=== PATIENT | male | born 1990 | race Caucasian/White ===

== ENCOUNTER 2016-04-18 10:30 | Emergency (ER) | payer MEDICAID, OTHER ==
--- NOTE | 2016-04-18 10:45 | ER Document Report ---
ED Medical Screen (RME) - General Stated Complaint: WEAKNESS Notes: schizoaffective has been started on new medications Dr Lee [facility] c/o auditory hallucinations, agitation that has gotten worse over the past 2 weeks denies any thoughts of harming himself or others. TRAVEL OUTSIDE OF THE [place] IN LAST 30 DAYS: No - Related Data Allergies/Adverse Reactions: No Known Allergies Allergy (Unverified 02/18/16 15:58) Past Medical History Psychiatric Medical History: Reports: Hx Anxiety, Hx Depression, Hx Schizophrenia - Immunizations Hx Diphtheria, Pertussis, Tetanus Vaccination: No Physical Exam - Vital signs Vitals: Temp Pulse Resp BP Pulse Ox 98.0 F 104 H 20 124/80 99 04/18/16 10:35 04/18/16 10:35 04/18/16 10:35 04/18/16 10:35 04/18/16 10:35 Course - Vital Signs Vital signs: Temp Pulse Resp BP Pulse Ox 98.0 F 104 H 20 124/80 99 04/18/16 10:35 04/18/16 10:35 04/18/16 10:35 04/18/16 10:35 04/18/16 10:35
--- NOTE | 2016-04-18 11:33 | ER Document Report ---
[id number] Mode of Arrival: Ambulatory Information source: Patient Notes: 25 yr old male with schizoeffective disorder presents with ocmplaints of hearing voices, pt attributes this secondary to marijuana use at age 18. Pt is currently on benztropine, seroquel and note meds are not working. TRAVEL OUTSIDE OF THE [place] IN LAST 30 DAYS: No - HPI Onset: Last week Onset/Duration: Persistent Quality of pain: No pain Severity: Mild Pain Level: Denies Associated symptoms: None Exacerbated by: Denies Relieved by: Denies Similar symptoms previously: No Recently seen / treated by doctor: No - Related Data Allergies/Adverse Reactions: No Known Allergies Allergy (Verified 04/18/16 10:41) Past Medical History - Social History Smoking Status: Current Every Day Smoker Cigarette use (# per day): Yes Chew tobacco use (# tins/day): No Smoking Education Provided: Yes - Patient counselled regarding cessation for 4 minutes Frequency of alcohol use: None Drug Abuse: None Family History: Reviewed & Not Pertinent Patient has suicidal ideation: No Patient has homicidal ideation: No Renal/ Medical History: Denies: Hx Peritoneal Dialysis Psychiatric Medical History: Reports: Hx Anxiety, Hx Depression, Hx Schizophrenia - Immunizations Hx Diphtheria, Pertussis, Tetanus Vaccination: No Review of Systems - Review of Systems Notes: REVIEW OF SYSTEMS: CONSTITUTIONAL : Denies fever, chills, or sweats. Denies recent illness. EENT: Denies eye, ear, throat, or mouth pain or symptoms. Denies nasal or sinus congestion or discharge. Denies throat, tongue, or mouth swelling or difficulty swallowing. CARDIOVASCULAR: Denies chest pain. Denies palpitations or racing or irregular heart beat. Denies ankle edema. RESPIRATORY: Denies cough, cold, or chest congestion. Denies shortness of breath, difficulty breathing, or wheezing. GASTROINTESTINAL: Denies abdominal pain or distention. Denies nausea, vomiting , or diarrhea. Denies blood in vomitus, stools, or per rectum. Denies black, tarry stools. Denies constipation. GENITOURINARY: Denies difficulty urinating, painful urination, burning, frequency, blood in urine, or discharge. MUSCULOSKELETAL: Denies back or neck pain or stiffness. Denies joint pain or swelling. SKIN: Denies rash, lesions or sores. HEMATOLOGIC : Denies easy bruising or bleeding. LYMPHATIC: Denies swollen, enlarged glands. NEUROLOGICAL: Denies confusion or altered mental status. Denies passing out or loss of consciousness. Denies dizziness or lightheadedness. Denies headache. Denies weakness or paralysis or loss of use of either side. Denies problems with gait or speech. Denies sensory loss, numbness, or tingling. Denies seizures. PSYCHIATRIC: Admits to auditory hallucinations ALL OTHER SYSTEMS REVIEWED AND NEGATIVE. Dictation was performed using [employer] voice recognition software PHYSICAL EXAMINATION: GENERAL: Well-appearing, well-nourished and in no acute distress. HEAD: Atraumatic, normocephalic. EYES: Pupils equal round and reactive to light, extraocular movements intact, sclera anicteric, conjunctiva are normal. ENT: Nares patent, oropharynx clear without exudates. Moist mucous membranes. NECK: Normal range of motion, supple without lymphadenopathy LUNGS: Breath sounds clear to auscultation bilaterally and equal. No wheezes rales or rhonchi. HEART: Regular rate and rhythm without murmurs ABDOMEN: Soft, nontender, nondistended abdomen. No guarding, no rebound. No masses appreciated. Musculoskeletal: Normal range of motion, no pitting or edema. No cyanosis. NEUROLOGICAL: Cranial nerves grossly intact. Normal speech, normal gait. Normal sensory, motor exams PSYCH: Noted to be aggressive on arrival a calm in the room SKIN: Warm, Dry, normal turgor, no rashes or lesions noted. Physical Exam - Vital signs Vitals: Temp Pulse Resp BP Pulse Ox 98.0 F 104 H 20 124/80 99 04/18/16 10:35 04/18/16 10:35 04/18/16 10:35 04/18/16 10:35 04/18/16 10:35 Course - Re-evaluation Re-evalutation: 04/18/16 11:39 Medically, do not expect any abnormalities, patient will be evaluated by mental health - Vital Signs Vital signs: Temp Pulse Resp BP Pulse Ox 98.0 F 89 16 101/54 L 97 04/18/16 12:30 04/18/16 12:30 04/18/16 12:30 04/18/16 12:30 04/18/16 12:30 - Laboratory Result Diagrams: 04/18/16 11:27 01/16/17 11:27 Laboratory results interpreted by me: 04/18/16 04/18/16 04/18/16 11:27 11:27 14:30 Hgb 13.3 L RDW 14.5 H Eosinophils % 9.6 H Total Protein 8.3 H Ur Leukocyte Esterase SMALL H Salicylates < 1.0 L Acetaminophen < 10 L Discharge - Discharge Clinical Impression: Auditory hallucinations Schizoaffective disorder Qualifiers: Schizoaffective disorder type: bipolar Qualified Code(s): F25.0 - Schizoaffective disorder, bipolar type Condition: Stable Disposition: PSYCH HOSP/UNIT Additional Instructions: Please follow-up with the care plan provided to you by our mental health team will return immediately if there any other concerns
[2016-04-18 11:52] LABS: ABSOLUTE EOSINOPHILS # (AUTO) 0.6 10^3/uL (0.0-0.6); ABSOLUTE LYMPHOCYTES (AUTO) 1.2 10^3/uL (0.5-4.7); ABSOLUTE MONOCYTES (AUTO) 0.5 10^3/uL (0.1-1.4); ABSOLUTE NEUT (AUTO) 3.7 10^3/uL (1.7-8.2); BASOPHILS % (AUTO) 0.7 % (0-2); EOSINOPHILS % (AUTO) 9.6 % (0-6); HEMATOCRIT 40.9 % (37.9-51.0); HEMOGLOBIN 13.3 g/dL (13.5-17.0); MEAN CORPUSCULAR HEMOGLOBIN 29.5 pg (27.0-33.4); MEAN CORPUSCULAR HGB CONC 32.6 g/dL (32.0-36.0); MEAN CORPUSCULAR VOLUME 90 fl (80-97); MONOCYTES % (AUTO) 8.8 % (3-13); RED BLOOD COUNT 4.52 10^6/uL (4.35-5.55); RED CELL DISTRIBUTION WIDTH 14.5 % (11.5-14.0); SEGMENTED NEUTROPHILS % (AUTO) 60.9 % (42-78)
[2016-04-18 12:10] LABS: ALANINE AMINOTRANSFERASE 32 U/L (21-72); ALKALINE PHOSPHATASE 68 U/L (38-126); ANION GAP 11 (5-19); ASPARTATE AMINO TRANSFERASE 22 U/L (17-59); BILIRUBIN,TOTAL 0.3 mg/dL (0.2-1.3); BLOOD UREA NITROGEN 14 mg/dL (7-20); CALCIUM 9.5 mg/dL (8.4-10.2); CARBON DIOXIDE 28 mmol/L (22-30); CHLORIDE 105 mmol/L (98-107); GLUCOSE 108 mg/dL (75-110); POTASSIUM 4.3 mmol/L (3.6-5.0); SODIUM 143.9 mmol/L (137-145); TOTAL PROTEIN 8.3 g/dL (6.3-8.2)
[2016-04-18 12:12] LABS: ALCOHOL < 10 mg/dL (NONE DETECTED)
--- NOTE | 2016-04-18 12:18 | EKG REPORT ---
SEVERITY:- ABNORMAL ECG - SINUS RHYTHM BORDERLINE T ABNORMALITIES, INFERIOR LEADS ST ELEVATION SUGGESTS NORMAL VARIANT. : Confirmed by: Juliocesar Morgan MD 18-Apr-2016 12:17:51
[2016-04-18 15:27] LABS: APPEARANCE,URINE CLEAR; BILIRUBIN,URINE NEGATIVE (NEGATIVE); GLUCOSE, URINE NEGATIVE (NEGATIVE); KETONES,URINE NEGATIVE (NEGATIVE); LEUKOCYTE ESTERASE,URINE SMALL (NEGATIVE); NITRITE,URINE NEGATIVE (NEGATIVE); PROTEIN,URINE NEGATIVE (NEGATIVE); URINE SPECIFIC GRAVITY 1.013; UROBILINOGEN,URINE NEGATIVE mg/dL (<2.0)
[2016-04-18 15:38] LABS: URINE BARBITURATES SCREEN NEGATIVE; URINE METHADONE SCREEN NEGATIVE; URINE PHENCYCLIDINE SCREEN NEGATIVE
--- NOTE | 2016-04-18 16:13 | PSYCHOLOGICAL NOTE ---
Psych Note - Psych Note Psych Note: Patient is a 25 year old male who presents via his Aunt, with c/o AH. Patient is reportedly diagnosed with Schizoaffective Disorder, Bipolar Type and has been seen in this department previously for similar complaints. Note, patient was seen and administered Haldol Deconate 02/17. Patient reportedly followed up with Dr. Lee at [facility] and was started on new medications 2 weeks ago. Patient today does not engage in conversation and instructs me to talk to his Aunt. Attempted multiple times to engage patient in conversation, which appeared to increase his irritability aeb voice dipak. Patient advised that his instructions to speak with his aunt were considered as verbal consent. Patient's Aunt, Dasha Tyson states since his last episode his aggressive outbursts have increased in frequency and severity. Aunt reports over the weekend she became afraid of the patient after multiple episodes of his posturing as though he would assault her, she brought him to a motel. She states she scheduled an appointment for this morning with [facility] after she no longer felt his provider via [facility] could help due to multiple medication trials with no improvement of his symptoms. She states at the appointment this morning, another individual in the building turned around when they walked in. She reports the patient became argumentative and challenged the patient as though he was going to assault him. Aunt states they were directed by staff to leave and come to the ED for evaluation (by the office staff). Aunt states since his discharge last February, he followed up with [facility] [[email or web address]], and due to continued aggression and no relief from the hallucinations, the Haldol was discontinued and has since been started on Seroquel XR whicch caused him to remain awake chain smoking cigarettes all night (400 mg 2 tabs qhs); Propanolol 20 mg bid; Trazadone 10 mg qhs; and Cogentin 1 mg bid. Aunt adamant that she provides patient the doses when do and she does her best to observe the patient swallow the pills. She states she does not feel safe with the patient at home due to his verbal aggression, posturing, and continued auditory hallucinations. Patient appears to be A&O. Mood is irritable and defiant with normal affect. Patient did not answer questions about suicidality or homicidal ideations. Patient is observed in his room talking as though he is responding to internal stimuli. Thought processes were guarded. Conversational speech was labile for rate, tone, and prosody. Intellectual abilities were estimated within average range. Attention and focus were fair. Insight, judgment, and impulse control were poor 1. 295.70 (F25.0) Schizoaffective Disorder, Bipolar Type Patient is recommended to be placed under IVC and seek 24 hour inpatient psychiatric hospitalizations. Patient presents as a danger to himself and possibly others. Patient's poor judgment and poor insight are exasperated by his paranoia placing him at risk for additional and possibly more severe episodes.
[2016-04-19 06:42] VITALS: BP 102/58
--- NOTE | 2016-04-19 09:44 | ER Document Report ---
Doctor's Note Notes: 04/19/16 09:40 Rounds: Chart reviewed and patient interviewed. Patient being evaluated for hallucinations, agitation, psychotic behavior. Working diagnosis of schizoaffective disorder, bipolar type. Vital signs are all normal except for a very slight increase in heart rate in the 109 this morning. All lab studies have been essentially normal. Patient appears to be medically stable for transfer or discharge. Patient has a room assignment at [facility] and will be transferred there is morning. Vinod Neumann M.D.
== END 2016-04-19 10:06 ==
LOC: ER 10:30
DX: F25.0 Schizoaffective disorder, bipolar type (principal); F17.210 Nicotine dependence, cigarettes, uncomplicated; Z71.6 Tobacco abuse counseling; Z79.899 Other long term (current) drug therapy
CPT/HCPCS: 36415; 80053; 80307; 81001; 85025; 93005; 93010; 99285

== ENCOUNTER → 2019-10-17 | Outpatient (CLI) | payer MEDICAID ==
[2019-10-17 15:39] LABS: ABSOLUTE LYMPHOCYTES (AUTO) 0.9 10^3/uL (0.5-4.7); ABSOLUTE MONOCYTES (AUTO) 0.3 10^3/uL (0.1-1.4); ABSOLUTE NEUT (AUTO) 5.5 10^3/uL (1.7-8.2); BASOPHILS % (AUTO) 0.6 % (0-2); EOSINOPHILS % (AUTO) 0.6 % (0-6); HEMOGLOBIN 13.6 g/dL (13.5-17.0); LYMPHOCYTES % (AUTO) 12.9 % (13-45); MEAN CORPUSCULAR HEMOGLOBIN 34.6 pg (27.0-33.4); MEAN CORPUSCULAR HGB CONC 35.7 g/dL (32.0-36.0); MEAN CORPUSCULAR VOLUME 97 fl (80-97); MONOCYTES % (AUTO) 3.9 % (3-13); PLATELET COUNT 368 10^3/uL (150-450); RED BLOOD COUNT 3.92 10^6/uL (4.35-5.55); RED CELL DISTRIBUTION WIDTH 14.6 % (11.5-14.0); TOTAL CELLS COUNTED % (AUTO) 100 %; WHITE BLOOD COUNT 6.6 10^3/uL (4.0-10.5)
[2019-10-17 15:47] LABS: ALKALINE PHOSPHATASE 121 U/L (38-126); ANION GAP 9 (5-19); ASPARTATE AMINO TRANSFERASE 45 U/L (17-59); BILIRUBIN,TOTAL 0.4 mg/dL (0.2-1.3); BLOOD UREA NITROGEN 7 mg/dL (7-20); CALCIUM 9.6 mg/dL (8.4-10.2); CARBON DIOXIDE 26 mmol/L (22-30); CHLORIDE 99 mmol/L (98-107); GLUCOSE 93 mg/dL (75-110); POTASSIUM 4.5 mmol/L (3.6-5.0); TOTAL PROTEIN 7.5 g/dL (6.3-8.2)
== END ==
LOC: OD 14:47
PROVIDERS: ATTEND Family Medicine
DX: E83.42 Hypomagnesemia (principal); E55.9 Vitamin D deficiency, unspecified; E87.1 Hypo-osmolality and hyponatremia; E87.6 Hypokalemia; Z79.899 Other long term (current) drug therapy
CPT/HCPCS: 36415; 80053; 82306; 83735; 85025

== ENCOUNTER → 2019-11-25 | Outpatient (CLI) | payer MEDICAID ==
[2019-11-25 10:20] LABS: ALBUMIN 4.3 g/dL (3.5-5.0); ALKALINE PHOSPHATASE 102 U/L (38-126); ASPARTATE AMINO TRANSFERASE 27 U/L (17-59); BILIRUBIN,DIRECT 0.3 mg/dL (0.0-0.4); BILIRUBIN,TOTAL 0.6 mg/dL (0.2-1.3); TOTAL PROTEIN 7.7 g/dL (6.3-8.2)
== END ==
LOC: OD 08:49
PROVIDERS: ATTEND Family Medicine
DX: R79.89 Other specified abnormal findings of blood chemistry (principal)
CPT/HCPCS: 36415; 80076

== ENCOUNTER 2019-12-26 09:55 | Day surgery (SDC) | payer MEDICAID ==
[~2019-12-26 09:55] MED LIST: CHONDR SU A NA/HYALUR INTRAOC KIT (SURGICARE) ONE; DORZOLAMIDE HCL 2%/TIMOLOL MALEAT 0.5% OPH SOLN 10 ML OS PRN; EPINEPHRINE INJ/PF 1 MG/1 ML AMPULE ONE; FENTANYL CITRATE INJ/PF 100 MCG/2 ML AMPUL ONE; KETOROLAC TROMETHAMINE 0.45% 4 DROP/0.4 ML DROPERETTE OS PRN; LIDOCAINE 1%/PHENYLEPHRINE 1.5% 0.8 ML SYRINGE ONE; MIDAZOLAM 2 MG/2 ML INJ ONE; PREDNISOLONE ACETATE 1% OPH SUSP 5 ML OS PRN; TRYPAN BLUE 0.06 % OPH SOLN 0.5 ML DISP.SYRIN ONE
[2019-12-26] MEDS: TETRACAINE HCL 0.5% OPH SOLN 4 ML OS PRN ×3 (10:43→11:13)
[2019-12-26] MEDS: CYCLOPENTOLATE 0.2%/PHENYLEPHRINE 1% OPH SOLN 2 ML OS PRN ×3 (10:43→11:12)
[2019-12-26] MEDS: BESIFLOXACIN HCL 0.6% OPH SUSP 5 ML BOTTLE OS PRN ×3 (10:43→11:46)
[2019-12-26] MEDS: TROPICAMIDE 1% OPH SOLN 15 ML OS PRN ×3 (10:43→11:12)
[2019-12-26] MEDS ORDERED: BUPIVACAINE HCL 0.75% INJ/PF (7.5 MG/1 ML) 10 ML SDV ONE (10:49)
[2019-12-26] MEDS ORDERED: LIDOCAINE 2% INJ-PF (20 MG/ML) 10 ML AMPUL ONE (10:50)
[2019-12-26] MEDS ORDERED: HYALURONIDASE INJ 150 UNIT/1 ML VIAL ONE (10:50)
[2019-12-26] MEDS ORDERED: TOBRAMYCIN SULFATE/DEXAMETH OPH OINTMENT 3.5 GM ONE (10:51)
[2019-12-26] MEDS ORDERED: CHONDR SU A NA/HYALUR SOD 0.5 ML DISP.SYRIN ONE (11:52)
[2019-12-26] MEDS ORDERED: FLUMAZENIL INJ 0.5 MG/5 ML VIAL ONE (13:03)
--- NOTE | 2019-12-26 13:26 | Operative Report ---
Operative Report-[facility] Operative Report: DATE OF SURGERY: 12/26/2019 PREOPERATIVE DIAGNOSIS: mature cataracts, left eye POSTOPERATIVE DIAGNOSIS: Mature cataract, left eye OPERATION: Complex cataract extraction with insertion of an IOL of the left eye. And use of trypan blue dye Intraocular Lens Model: [14.5 SN 60 WF] patient underwent surgery for unable to see to read or watch television SURGEON: Adryan Tomas MD ANESTHESIA: Topical PROCEDURE: After obtaining appropriate consent, the patient's left eye was prepped and draped in a sterile fashion as well as the surgeon in the sterile manner and cataract surgery was started. First a paracentesis blade was used to make a side-port incision. Viscoelastic was used to inflate the anterior chamber. Next a 2.4 mm incision was made with a 2.4 mm blade, clear corneal temporarily. Due to the density of the lens trypan blue dye was used to stain the anterior capsule A continuous capsulorrhexis was made using a cystotome and Utrata forceps. Following this hydrodissection was carried out to make the lens fully loose and mobile and it was rotated 90 degrees. Following this, a divide and conquer technique was used to phacoemulsify the lens. The remaining cortex was removed with an irrigation/aspiration. Provisc was instilled into the capsular bag to inflate the bag.The intraocular lens was placed. The remaining viscoelastic material was removed with irrigation/aspiration. Following this, the incision was found to be watertight. Besivance and Cosopt was instilled into the eye and a protective shield was placed over the eye. The patient was returned to the postoperative recovery in a stable condition.
== END 2019-12-26 15:09 | disposition home or self-care (01) ==
LOC: SC 09:55
PROVIDERS: ATTEND Internal Medicine
DX: H25.89 Other age-related cataract (principal); F41.9 Anxiety disorder, unspecified; F84.0 Autistic disorder; Z83.3 Family history of diabetes mellitus
CPT/HCPCS: 66982; V2632; J3490 ×10; J2250; J0171; J3010; J3470; 142

== ENCOUNTER 2020-01-16 09:55 | Day surgery (SDC) | payer MEDICAID ==
[~2020-01-16 09:55] MED LIST changes: -CHONDR SU A NA/HYALUR INTRAOC KIT (SURGICARE) ONE; -DORZOLAMIDE HCL 2%/TIMOLOL MALEAT 0.5% OPH SOLN 10 ML OS PRN; -EPINEPHRINE INJ/PF 1 MG/1 ML AMPULE ONE; -FENTANYL CITRATE INJ/PF 100 MCG/2 ML AMPUL ONE; +KETOROLAC TROMETHAMINE 0.45% 4 DROP/0.4 ML DROPERETTE OD PRN; -KETOROLAC TROMETHAMINE 0.45% 4 DROP/0.4 ML DROPERETTE OS PRN; -LIDOCAINE 1%/PHENYLEPHRINE 1.5% 0.8 ML SYRINGE ONE; -MIDAZOLAM 2 MG/2 ML INJ ONE; -PREDNISOLONE ACETATE 1% OPH SUSP 5 ML OS PRN
[2020-01-16] MEDS: CYCLOPENTOLATE 0.2%/PHENYLEPHRINE 1% OPH SOLN 2 ML OD PRN ×3 (10:36→10:54)
[2020-01-16] MEDS: TETRACAINE HCL 0.5% OPH SOLN 4 ML OD PRN ×4 (10:36→11:12)
[2020-01-16] MEDS: BESIFLOXACIN HCL 0.6% OPH SUSP 5 ML BOTTLE OD PRN ×4 (10:36→11:44)
[2020-01-16] MEDS: TROPICAMIDE 1% OPH SOLN 15 ML OD PRN ×3 (10:36→10:54)
[2020-01-16] MEDS ORDERED: FENTANYL CITRATE INJ/PF 100 MCG/2 ML AMPUL ONE (11:03)
[2020-01-16] MEDS ORDERED: MIDAZOLAM 2 MG/2 ML INJ ONE (11:03)
[2020-01-16] MEDS ORDERED: LIDOCAINE 2% INJ-PF (20 MG/ML) 10 ML AMPUL ONE (11:19)
[2020-01-16] MEDS ORDERED: TOBRAMYCIN SULFATE/DEXAMETH OPH OINTMENT 3.5 GM ONE (11:19)
[2020-01-16] MEDS ORDERED: BUPIVACAINE HCL 0.75% INJ/PF (7.5 MG/1 ML) 10 ML SDV ONE (11:19)
[2020-01-16] MEDS ORDERED: HYALURONIDASE INJ 150 UNIT/1 ML VIAL ONE (11:19)
[2020-01-16] MEDS: LIDOCAINE 1%/PHENYLEPHRINE 1.5% 1 ML VIAL ONE ×2 (11:28)
[2020-01-16] MEDS: CHONDR SU A NA/HYALUR INTRAOC KIT (SURGICARE) ONE ×2 (11:28)
[2020-01-16] MEDS: EPINEPHRINE INJ/PF 1 MG/1 ML AMPULE ONE ×2 (11:28)
[2020-01-16] MEDS: PREDNISOLONE ACETATE 1% OPH SUSP 5 ML OD PRN ×3 (11:28→11:44)
[2020-01-16] MEDS ORDERED: CHONDR SU A NA/HYALUR SOD 0.5 ML DISP.SYRIN ONE (11:33)
[2020-01-16] MEDS: DORZOLAMIDE HCL 2%/TIMOLOL MALEAT 0.5% OPH SOLN 10 ML OD PRN ×2 (11:44)
--- NOTE | 2020-01-16 12:13 | Operative Report ---
Operative Report[facility] Operative Report: DATE OF SURGERY: 01/16/2020 PREOPERATIVE DIAGNOSIS: Mature cataract, right eye POSTOPERATIVE DIAGNOSIS: Mature cataract, right eye OPERATION: Complex cataract extraction with insertion of an IOL of the right eye. Use of trypan blue dye Intraocular Lens Model: [18.0 diopter SN 60 WF lens] Patient underwent surgery for difficulty seeing the television SURGEON: Adryan Tomas MD ANESTHESIA: Topical and retrobulbar block PROCEDURE: After obtaining appropriate consent, the patient's right eye was prep ped and draped in a sterile fashion as well as the surgeon in the sterile manner and cataract surgery was started. First a paracentesis blade was used to make a side-port incision. Viscoelastic was used to inflate the anterior chamber. Next a 2.4 mm incision was made with a 2.4 mm blade, clear corneal temporarily. trypan blue dye was used to stain the anterior capsule due to maturity of the lens A continuous capsulorrhexis was made using a cystotome and Utrata forceps. Following this hydrodissection was carried out to make the huber fully loose and mobile and it was rotated. Following this, a divide and conquer technique was used to phacoemulsify the huber. The remaining cortex was removed with an irrigation/aspiration. Provisc was instilled into the capsular bag to inflate the bag. The intraocular lens was placed. The remaining viscoelastic material was removed with irrigation/aspiration. Following this, the incision was found to be watertight. Besivance and Cosopt was instilled into the eye and a protective shield was placed over the eye. The patient was reurned to the postoperative recovery in a stable condition.
[2020-01-16] MEDS ORDERED: PROPOFOL INJ 200 MG/20 ML VIAL IV ONE (12:17)
== END 2020-01-16 13:00 ==
LOC: SC 09:55
PROVIDERS: ATTEND Internal Medicine
DX: H25.89 Other age-related cataract (principal); Z96.1 Presence of intraocular lens; F41.9 Anxiety disorder, unspecified; F84.0 Autistic disorder
CPT/HCPCS: 66982; V2632; J2250; J3490 ×8; J0171; J2704; J3470; 142; J3010

== ENCOUNTER → 2020-02-01 | Outpatient (CLI) | payer MEDICAID ==
--- NOTE | 2020-02-01 10:41 | ER RDC ASSESSMENT REPORT ---
Intake - In the Last 14 days Have you traveled outside [place]?: No Have you been in close contact with someone CONFIRMED: No Worked in Healthcare?: No - Symptoms Subjective Fever([place] feverish): No Chills: No Muscule Aches: No Runny Nose: No Sore Throat: No Cough (New or worsening chronic cough): No Shortness of breath: No Nausea or Vomiting: Yes Headache: No Abdominal Pain: No Diarrhea(3 or more loose stools in last 24 hours): No - Do you have any of the following Chronic lung disease: Asthma or emphysema or COPD: No Cystic Fibrosis: No Diabetes: No High Blood Pressure: No Cardiovascular Disease: No Chronic Kidney Disease: No Chronic Liver Disease: No Chronic blood disorder like Sickle Cell Disease: No Weak immune system due to disease or medication: Yes Immune System Comment: HIV positive. Neurologic condition that limits movement: Yes Neurological Condition Comment: Developmental delay, seizures, and schizoaffective. Developmental delay - Moderate to Severe: Yes Developmental Delay Comment: Moderate developmental delay. Recent (within past 2 weeks) or current : No Morbid Obesity (>100 pounds over ideal weight): No - Objective Temperature: 97.8 F Pulse Rate: 68 Respiratory Rate: 14 Blood Pressure: 120/68 O2 Sat by Pulse Oximetry: 98 Objective: Patient is a well-appearing developmentally delayed 29-year-old male, who presents today for COVID-19 screening. 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 That diagnosis was suspected/considered upon initial presentation. Their evaluation, treatment, and testing was consistent with current guidelines for patients who present with complaints or symptoms that may be related to COVID-19. - HPI Onset: Yesterday Onset/Duration: Sudden Quality of pain: No pain Severity: None Pain Level: Denies Associated symptoms: Nausea, Vomiting Exacerbated by: Denies Relieved by: Denies Similar symptoms previously: No Recently seen / treated by doctor: No - Related Data Allergies/Adverse Reactions: No Known Allergies Allergy (Verified 01/10/20 09:42) Past Medical History - General Information source: Parent Cannot obtain history due to: Mentally challenged - Social History Smoking Status: Never Smoker Cigarette use (# per day): No Chew tobacco use (# tins/day): No Smoking Education Provided: No Frequency of alcohol use: None Drug Abuse: None Occupation: Disabled Lives with: Family Family History: Reviewed & Not Pertinent Patient has suicidal ideation: No Patient has homicidal ideation: No - Past Medical History Cardiac Medical History: Denies: Hx Heart Attack, Hx Hypertension Pulmonary Medical History: Denies: Hx Asthma Neurological Medical History: Reports: Hx Seizures - 07/2019. Denies: Hx Cerebrovascular Accident Renal/ Medical History: Denies: Hx Peritoneal Dialysis GI Medical History: Denies: Hx Hepatitis - HIV NON-DETECTABLE , Hx Hiatal Hernia, Hx Ulcer Psychiatric Medical History: Reports: Hx Anxiety, Hx Bipolar Disorder, Hx Depression, Hx Schizophrenia - Bi-polar Infectious Medical History: Reports: Hx HIV - HIV positive. Denies: Hx Hepatitis - HIV NON-DETECTABLE Past Surgical History: Denies: Hx Open Heart Surgery, Hx Pacemaker Physical Exam - General General appearance: Appears well In distress: None Notes: PHYSICAL EXAMINATION: GENERAL: Well-appearing with No Acute Distress noted. HEAD: Atraumatic, Normocephalic. EYES: Sclera anicteric, Conjunctiva are pink and moist. ENT: Nares patent. Moist mucous membranes. NECK: Normal range of motion, supple without lymphadenopathy. LUNGS: CTAB and equal. No wheezes rales or rhonchi. HEART: Regular rate and rhythm without murmurs. ABDOMEN: Soft, nontender, normal bowel sounds, no guarding. EXTREMITIES: Normal range of motion, no pitting edema. No cyanosis. BACK: No midline or CVA tenderness. No step-off or deformity. NEUROLOGICAL: Cranial nerves grossly intact. PSYCH: Calm, Cooperative, and answers questions appropriately. Normal mood and affect. SKIN: Warm, Dry, Normal color and Turgor, No obvious lesions or rash noted. Diagnostic Results Laboratory Results: Patient advised at this time they are considered a Person Under Investigation (PUI) for the COVID-19 Coronavirus. They have been made aware it is currently taking 3 to 5 days to receive their results. Patient advised The [facility] Department will call to notify them of a POSITIVE result, and an [facility] steam and gas turbine assembler will call to notify them of a NEGATIVE result. Patient Education/Counseling Counseling/Education: Patient presents with upper respiratory symptoms worrisome for possible COVID- 19. Patient does not have symptoms worrisome as an emergency such as difficulty breathing, shortness of breath, chest pain, pressure, confusion or cyanosis. Patient appears suitable for discharge. Patient's vital signs are stable and patient is nontoxic in appearance. Good return precautions have been discussed with patient, patient verbalized understanding and is agreeable with discharge plan of care at this time. Patient provided COVID-19 discharge instructions to include: As a person under investigation for COVID-19, the [facility], division of public health advises you to adhere to the following guidance until your test results are reported to you. If your test result is positive, you will receive additional information from your provider and your local health department at that time. Remain at home until you are cleared by the health provider or public health authorities. Keep a log of visitors to your home, notify any visitors to your home of your isolation status. If you plan to move to a new address or leave the county, notify the local health department in your County. Call your doctor or seek care if you have an urgent medical need. Before seeking medical care, call ahead to get instructions from the provider before arriving at the medical office clinic or hospital. Notify them that you are being tested for the virus that causes COVID-19 so that arrangements can be made, as necessary, to prevent transmission to others in the healthcare setting. Next, notify the local health department in your county. If a medical emergency arises and you need to call 911, inform dispatch and the first responders that you are being tested for the virus that causes COVID-19. Next, notify the local health department in your county. Guidance for worsening S/SX: For worsening symptoms, patient has been advised to contact their Primary Care Provider, or go to the nearest Emergency Department. RDC Discharge - Discharge Clinical Impression: COVID-19 Screening URI (upper respiratory infection) Qualifiers: URI type: unspecified URI Qualified Code(s): J06.9 - Acute upper respiratory infection, unspecified Disposition: Home; Selfcare
[2020-02-01 11:23] VITALS: BP 120/68
== END ==
LOC: RDC 09:53
PROVIDERS: ATTEND Nurse Practitioner Family
DX: J06.9 Acute upper respiratory infection, unspecified (principal); Z20.828 Contact with and (suspected) exposure to other viral communicable diseases; B20 Human immunodeficiency virus [HIV] disease; R11.2 Nausea with vomiting, unspecified; R62.59 Other lack of expected normal physiological development in childhood; G40.909 Epilepsy, unspecified, not intractable, without status epilepticus; F41.8 Other specified anxiety disorders; F31.9 Bipolar disorder, unspecified; F20.89 Other schizophrenia
CPT/HCPCS: 87635; C9803

== ENCOUNTER 2020-02-22 20:08 | Emergency (ER) | payer MEDICAID ==
--- NOTE | 2020-02-22 21:03 | EKG REPORT ---
SEVERITY:- ABNORMAL ECG - SINUS RHYTHM FIRST DEGREE AV BLOCK ST ELEV, PROBABLE NORMAL EARLY REPOL PATTERN : Confirmed by: Lay Goodman MD 22-Feb-2020 21:01:43
[2020-02-22 21:28] LABS: ABSOLUTE LYMPHOCYTES (AUTO) 0.7 10^3/uL (0.5-4.7); ABSOLUTE MONOCYTES (AUTO) 0.2 10^3/uL (0.1-1.4); ABSOLUTE NEUT (AUTO) 3.2 10^3/uL (1.7-8.2); BASOPHILS % (AUTO) 0.3 % (0-2); EOSINOPHILS % (AUTO) 1.2 % (0-6); LYMPHOCYTES % (AUTO) 16.9 % (13-45); MEAN CORPUSCULAR HEMOGLOBIN 32.8 pg (27.0-33.4); MEAN CORPUSCULAR HGB CONC 34.2 g/dL (32.0-36.0); MEAN CORPUSCULAR VOLUME 96 fl (80-97); MONOCYTES % (AUTO) 4.3 % (3-13); PLATELET COUNT 192 10^3/uL (150-450); RED BLOOD COUNT 3.97 10^6/uL (4.35-5.55); RED CELL DISTRIBUTION WIDTH 13.9 % (11.5-14.0); SEGMENTED NEUTROPHILS % (AUTO) 77.3 % (42-78); TOTAL CELLS COUNTED % (AUTO) 100 %; WHITE BLOOD COUNT 4.2 10^3/uL (4.0-10.5)
[2020-02-22 21:39] LABS: ALBUMIN 3.9 g/dL (3.5-5.0); ALKALINE PHOSPHATASE 83 U/L (38-126); ANION GAP 15 (5-19); ASPARTATE AMINO TRANSFERASE 30 U/L (17-59); BILIRUBIN,DIRECT 0.1 mg/dL (0.0-0.4); BILIRUBIN,TOTAL 0.3 mg/dL (0.2-1.3); BLOOD UREA NITROGEN 8 mg/dL (7-20); CALCIUM 9.7 mg/dL (8.4-10.2); CARBON DIOXIDE 21 mmol/L (22-30); CHLORIDE 93 mmol/L (98-107); GLUCOSE 156 mg/dL (75-110); POTASSIUM 4.6 mmol/L (3.6-5.0); TOTAL PROTEIN 6.9 g/dL (6.3-8.2)
[2020-02-22 21:44] LABS: ALCOHOL < 10 mg/dL (NONE DETECTED)
[2020-02-22] MEDS ORDERED: DIAZEPAM INJ 10 MG/2 ML DISP.SYRIN IV ONE ×2 (22:34→23:32)
[2020-02-23] MEDS: LEVETIRACETAM 1000 MG/NACL-ISO 1,000 MG/100 ML RTUPB IV ONE ×2 (00:04→00:25)
[2020-02-23 01:02] LABS: APPEARANCE,URINE SLIGHTLY-CLOUDY; BILIRUBIN,URINE NEGATIVE (NEGATIVE); COLOR,URINE YELLOW; GLUCOSE, URINE NEGATIVE (NEGATIVE); KETONES,URINE NEGATIVE (NEGATIVE); LEUKOCYTE ESTERASE,URINE NEGATIVE (NEGATIVE); NITRITE,URINE NEGATIVE (NEGATIVE); PROTEIN,URINE 30 mg/dL (NEGATIVE); URINE SPECIFIC GRAVITY 1.016; UROBILINOGEN,URINE NEGATIVE mg/dL (<2.0)
[2020-02-23 01:45] LABS: URINE AMPHETAMINES SCREEN NEGATIVE; URINE BARBITURATES SCREEN NEGATIVE; URINE COCAINE SCREEN NEGATIVE; URINE MARIJUANA (THC) SCREEN NEGATIVE; URINE METHADONE SCREEN NEGATIVE; URINE PHENCYCLIDINE SCREEN NEGATIVE
[2020-02-23 01:46] LABS: URINE BENZODIAZEPINES SCREEN UNCONFIRMED POSITIVE
--- NOTE | 2020-02-23 02:00 | RADIOLOGY REPORT (SQ) ---
Shuntogram series x-ray three views on 02/23/2020 Clinical indications: Seizure, SENIOR DATABASE ENGINEER shunt. COMPARISON: CT on 02/23/2020 and chest x-ray from 02/25/2016 FINDINGS: AP only views of the skull and neck, chest and abdomen and pelvis are all obtained. The patient's right-sided approach ventricular catheter with its tip in the midline is noted. Portion of the catheter in the right neck is obscured by the right mandible. This portion however is mostly visualized on CT of the head and intact on that exam. The catheter extends through the level of the right chest and enters the abdomen with its tip not visualized as this extends down into the upper pelvis and then up into the left upper quadrant with its tip lateral to the imaging. No discontinuity of the visualized catheter is noted. Lungs are clear. Bowel gas pattern is nonspecific. IMPRESSION: Intact visualized portion of the right-sided SENIOR DATABASE ENGINEER shunt tubing.
--- NOTE | 2020-02-23 02:01 | RADIOLOGY REPORT (SQ) ---
EXAM DESCRIPTION: CT HEAD WITHOUT IV CONTRAST COMPLETED DATE/TME: 02/23/2020 01:30 CLINICAL HISTORY: 29 years, Male, seizure, senior svp shunt TECHNIQUE: Contiguous axial CT images of the brain. Intravenous contrast: Absent. DLP 1166 mGy-cm. This exam was performed according to our departmental dose-optimization program, which includes automated exposure control, adjustment of the mA and/or kV according to patient size and/or use of iterative reconstruction technique. COMPARISON: 11/07/2013. FINDINGS: There is a right frontal approach ventricular shunt catheter which terminates near the septum pellucidum. Lateral and third ventricles are dilated with the third ventricle measuring up to 2 cm in transverse dimension. There are mild periventricular hypodensities particularly along the frontal horns with encephalomalacia noted along the right frontal lobe. No acute cortical infarct, hemorrhage, mass, or extra-axial fluid collection. There is mucosal thickening of the left maxillary sinus. Mucous retention cysts are in the right maxillary sinus. Small amount of fluid within the bilateral mastoid air cells. No acute fracture. IMPRESSION: Frontal approach ventricular shunt catheter terminating near the septum pellucidum with dilatation of the lateral and third ventricles. Periventricular hypodensities with encephalomalacia along the right frontal lobe. There may be a component of transependymal flow around the ventricles. No hemorrhage, midline shift, or extra axial fluid collection.
[2020-02-23] MEDS ORDERED: NORMAL SALINE 1000 ML 1,000 ML IV ONE (02:14)
--- NOTE | 2020-02-23 04:48 | ER Document Report ---
ED General - General Chief Complaint: Probable Seizure Stated Complaint: POSS SEIZURE Time Seen by Provider: 02/22/20 23:35 Primary Care Provider: CARLO ALEX MD [Primary Care Provider] - Follow up as needed TRAVEL OUTSIDE OF THE [place] IN LAST 30 DAYS: No - HPI Context: This is a 29-year-old male with a history of CREDIT CARD CLERK shunt and seizure disorder who presents to the emergency department via EMS after having a generalized tonic- clonic seizure at home. Patient lives with his aunt and she relates history. Patient's aunt states that the patient has psychiatric issues and sometimes can be difficult to direct. Apparently the patient was kneeling beside his bed last night saying his prayers and when he finished he laid down on the floor and would not get up. Patient sent tried several times to get the patient to get out of bed and eventually just let him sleep on the floor with blankets on him since he is too heavy for her to lift. Patient sent denies the patient having missed any of his medications, denies history of COVID-19 infection, denies known exposure to persons positive for COVID-19 or persons under investigation for COVID-19. Patient's aunt gave the patient some diazepam nasal spray after the patient has been seizing for about 4 minutes which stopped the seizure. When the patient arrived here to the ED he had a additional episode of generalized seizure activity lasted less than a minute and was terminated with IV Valium. The patient's initial temperature was 93.3. Patient had a bear hugger placed on him in a temperature Irvin placed as well. Patient seems groggy after receiving Valium and is nonverbal at this time. Patient seen and denies any alleviating factors or exacerbating factors and states that the patient has not acted as though he was in pain. Associated symptoms: Other - See HPI Exacerbated by: Other - See HPI Relieved by: Other - See HPI Similar symptoms previously: Yes - Related Data Allergies/Adverse Reactions: No Known Allergies Allergy (Verified 01/10/20 09:42) Home Medications: valacyclovir, mag oxide, vit d3, multi vit, lamictal, descovy, senna, isentress, sodium chloride, invega, probiotic, hydrocortisone, levothyroxine, famotidine, eszopiclone, ativan, diazepam Past Medical History - General Information source: Relative - Social History Smoking Status: Unknown if Ever Smoked Drug Abuse: None Lives with: Other - Aunt Family History: Reviewed & Not Pertinent - Past Medical History Cardiac Medical History: Denies: Hx Heart Attack, Hx Hypertension Pulmonary Medical History: Denies: Hx Asthma Neurological Medical History: Reports: Hx Seizures - 07/2019. Denies: Hx Cerebrovascular Accident Renal/ Medical History: Denies: Hx Peritoneal Dialysis GI Medical History: Denies: Hx Hepatitis - HIV NON-DETECTABLE , Hx Hiatal Hernia, Hx Ulcer Psychiatric Medical History: Reports: Hx Anxiety, Hx Bipolar Disorder, Hx Depression, Hx Schizophrenia - Bi-polar Infectious Medical History: Reports: Hx HIV - HIV positive. Denies: Hx Hepatitis - HIV NON-DETECTABLE Past Surgical History: Denies: Hx Open Heart Surgery, Hx Pacemaker - Immunizations Hx Diphtheria, Pertussis, Tetanus Vaccination: No - unknown Review of Systems - Review of Systems Constitutional: denies: Fever EENT: No symptoms reported Cardiovascular: denies: Chest pain Respiratory: denies: Short of breath Gastrointestinal: denies: Nausea, Vomiting Genitourinary: No symptoms reported Male Genitourinary: No symptoms reported Musculoskeletal: No symptoms reported Skin: No symptoms reported Hematologic/Lymphatic: No symptoms reported Neurological/Psychological: Seizure -: Yes All other systems reviewed and negative Physical Exam - Vital signs Vitals: Resp Pulse Ox 16 94 02/22/20 20:24 02/22/20 20:24 - Notes Notes: CONSTITUTIONAL [Vital signs reviewed, patient appears somnolent but does not have a toxic appearance. HEAD [Atraumatic, Normocephalic.] EYES [Eyes are normal to inspection, No discharge from eyes, Extraocular muscles intact, Sclera are normal, Conjunctiva are normal.] ENT [External ears normal to inspection, Nose examination normal, Mouth normal to inspection.] NECK No jugular venous distention, No meningeal signs, ] RESPIRATORY CHEST [Chest is nontender, Breath sounds normal, No respiratory distress.] CARDIOVASCULAR [RRR, No murmurs, Normal S1 S2, No rub, No gallop.] ABDOMEN [Abdomen is nontender, No pulsatile masses, No other masses, Bowel sounds normal, No distension, No peritoneal signs, No hernias.] MALE Normal external male genitalia UPPER EXTREMITY [Inspection normal, No cyanosis, No clubbing, No edema, LOWER EXTREMITY [Inspection normal, No cyanosis, No clubbing, No edema, No calf tenderness, NEURO Patient is somnolent and nonverbal. Patient is not having any tonic-clonic seizure activity at this time] SKIN [Skin is warm, Skin is dry, Skin is normal color.] PSYCHIATRIC [flat affect. ] Course - Re-evaluation Re-evalutation: 02/23/20 05:12 Patient is more alert now. Patient's temperature has come up to 97.7. Results of ED MSE discussed with patient and patient's aunt. Conversation with Dr. Ac Watters at [facility] with neurosurgery also discussed. This MD called Dr. Thomas's office and there is a stated message to call 911 if you have an emergency but no information given in terms of a person leather seasoner for the practice. When this MD asked the patient's aunt, who is healthcare power of trade mark attorney for the patient, if all questions have been answered in all of the concerns related to their visit this morning have been addressed, she answered in the affirmative. Emergency signs and symptoms, reasons to return to the ER discussed with patient's aunt. - Vital Signs Vital signs: Temp Pulse Resp BP Pulse Ox 96.5 F L 16 120/80 95 02/23/20 00:00 02/23/20 00:00 02/23/20 00:00 02/23/20 00:00 - Laboratory Result Diagrams: 02/22/20 20:30 02/22/20 20:30 Laboratory results interpreted by me: 02/22/20 02/22/20 02/23/20 20:30 20:30 00:36 RBC 3.97 L Hgb 13.0 L Sodium 129.2 L Chloride 93 L Carbon Dioxide 21 L Glucose 156 H Urine Protein 30 H Urine Ascorbic Acid 20 H - Diagnostic Test Radiology reviewed: Reports reviewed - Consults Dr. Ac Watters, [facility] Neurosurgery Time consulted: 03:39 - Dr. Watters stated that the images we sent him look the same as prior imaging done over at [facility]. He thinks that it is a possibility that the drop in the patient's temperature and decrease in sodium level may have played a role in his seizure activity. He recommended the aunt call the neurosurgery clinic to arrange a follow-up appointment. Reason for consultation: 02/23/20 05:16 Patient had CREDIT CARD CLERK shunt placed at [facility]. Patient has had prior admissions and imaging done at [facility]. This MD wanted input in terms of how the CT done today compares to prior imaging done at [facility]. Discharge - Discharge Clinical Impression: Seizure, Hyponatremia Hypothermia Qualifiers: Encounter type: initial encounter Qualified Code(s): T68.XXXA - Hypothermia, initial encounter Condition: Stable Disposition: HOME, SELF-CARE Additional Instructions: Call [facility] neurosurgery clinic at [phone] after 9 AM on 02/24/2020. Tell them the reason you are calling is because Lenny was seen in the [place] ER over the weekend for a seizure and evaluation of his shunt. Tell them that Dr. Ac Watters wants Lenny to be seen within the next 2 weeks for a "follow-up visit." Call Dr. Thomas's office after 9 AM on 02/24/2020 to arrange a follow-up appointment. Let the receptionist nurse know that Lenny had 2 seizures over the weekend and needs to be seen in follow-up to discuss possibly increasing his Lamictal. Return to the Emergency Department without delay if any worse. HOME CARE INSTRUCTIONS & INFORMATION: Thank you for choosing us for your medical needs. We hope you're satisfied with the care you received. After you leave, you must properly care for your problem and, at the same time, observe its progress. Any condition can change. Some illnesses can change rapidly over hours or days. If your condition worsens, return to the Emergency Department or see your physician promptly. ABOUT YOUR X-RAYS AND EKG'S: If you had an EKG or X-rays taken, they have been read by the Emergency Physician. The X-rays and EKG's will also be read by a Radiologist or Prepress Technician within 24 hours. If discrepancies are noted, you will be notified by telephone. Please be certain the ED has a correct telephone number & address where you can be reached. Also, realize that some fractures or abnormalities do not show up on initial X-rays. If your symptoms continue, see your physician. ABOUT YOUR LABORATORY TEST: If you had laboratory tests, the results have been reviewed by the Emergency Physician. Some test results (for example cultures) may not be available for several days. You will be contacted if any test result shows you need additional treatment. Please be certain the ED has a correct telephone number and address where you can be reached. ABOUT YOUR MEDICATIONS: You will receive instructions on how to take your medicine on the prescription label you receive. Additional information may be provided by the Pharmacy. If you have questions afterwards, call the ED for clarification or further instructions. Some prescribed medications may cause drowsiness. Do not perform tasks such as driving a car or operating machinery without consulting your Pharmacist. If you feel you need a refill of pain medication, your condition will need re-evaluation. Please do not call for a refill of any medication. ABOUT YOUR SIGNATURE: Signature of this document acknowledges to followin. Understanding that you received emergency treatment and that you may be released before al medical problems are known or treated. Please be certain the ED has a correct phone number & address where you can be reached. 2. Acknowledgement that you will arrange for follow-up care as recommended. 3. Authorization for the Emergency Physician to provide information to your follow-up Physician in order to maximize your care. AT ANY TIME, IF YOUR SYMPTOMS CHANGE SIGNIFICANTLY OR WORSEN OR YOU DEVELOP NEW SYMPTOMS, RETURN TO THE EMERGENCY DEPARTMENT IMMEDIATELY FOR RE-EVALUATION. OUR GOAL IS TO PROVIDE EXCELLENT MEDICAL CARE! WE HOPE THAT WE HAVE MET YOUR EXPECTATIONS DURING YOUR EMERGENCY DEPARTMENT VISIT AND THAT YOU FEEL YOU HAVE RECEIVED EXCELLENT CARE! Referrals: CARLO ALEX MD [Primary Care Provider] - Follow up as needed
[2020-02-23 07:05] VITALS: BP 112/83
== END 2020-02-23 07:50 | disposition home or self-care (01) ==
LOC: ER 20:08
DX: G40.909 Epilepsy, unspecified, not intractable, without status epilepticus (principal); T68.XXXA Hypothermia, initial encounter; E87.1 Hypo-osmolality and hyponatremia; G93.89 Other specified disorders of brain; F20.9 Schizophrenia, unspecified; F41.9 Anxiety disorder, unspecified; Z79.899 Other long term (current) drug therapy; Z98.2 Presence of cerebrospinal fluid drainage device; Z21 Asymptomatic human immunodeficiency virus [HIV] infection status
CPT/HCPCS: 93005; 99285; 96361; 51702; 96374; 36415; 82962; 80307 ×2; 82550; 83735; 85025; 80053; 81001; 75809; 70450; 93010; J3360; J7030; J1953